=== PATIENT | male | born 2000 | race African-American/Black ===

== ENCOUNTER 2024-05-16 13:03 | Emergency (ER) | payer BC, SELFPAY ==
--- NOTE | ~2024-05-16 | XR_ITS ---
XR finger 4th RT min 2V 05/16/2024 14:07 INDICATION: Right fourth finger pain PROCEDURE: 4 views right fourth finger COMPARISON: No prior studies for comparison. FINDINGS: Fracture, dislocation or subluxation is not identified. The soft tissues appear within norm al limits. No foreign bodies are identified. IMPRESSION: 1: NO ACUTE BONE OR JOINT ABNORMALITY IDENTIFIED. 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
[2024-05-16 13:17] VITALS: BP 121/81; PULSE 82; RESP 18; TEMP 37.2; O2SAT 98
--- NOTE | 2024-05-16 13:54 | ED.GENADULT ---
HPI - General Adult General Chief complaint: Extremity Problem,Nontraumatic Stated complaint: INJURED FINGER Time Seen by Provider: 05/16/24 13:54 Source: patient Mode of arrival: ambulatory Limitations: no limitations History of Present Illness HPI narrative: 23-year-old male presents with complaint of pain and swelling to right ring finger. Patient hurt finger while playing basketball yesterday. Decreased range of motion due to pain. Distal neurovascularly intact. All systems reviewed and negative except as noted above. Related Data Home Medications ?Medication ?Instructions ?Recorded ?Confirmed ?Last Taken ?Type No Home Medications 05/16/24 05/16/24 Unknown History Allergies Allergy/AdvReac Type Severity Reaction Status Date / Time No Known Allergies Allergy Verified 05/16/24 13:21 Review of Systems Review of Systems: CONSTITUTIONAL: Denies fever, chills, or sweats. EYES: Denies visual changes, redness, or discharge. ENT: Denies rhinorrhea, congestion, sore throat, or otalgia. CARDIOVASCULAR: Denies chest pain, palpitations, or edema. RESPIRATORY: Denies cough or dyspnea. GASTROINTESTINAL: Denies abdominal pain, nausea, vomiting, or diarrhea. GENITOURINARY: Denies dysuria or hematuria. SKIN: Denies rash or itching. MUSCULOSKELETAL: Denies back pain, joint pain, or myalgia. Reports pain and swelling to right ring finger. NEUROLOGIC: Denies headache, numbness, or weakness. PSYCHIATRIC: Denies anxiety or depression. All other systems reviewed are negative, except as documented in HPI. PMFSH Comments At time of signature, agree with nursing past medical, surgical, social and family history. There is no relevant family history pertinent to the presenting complaint. Exam Narrative: GENERAL: This is a well-nourished, well-developed patient, in no apparent distress. HEAD: normocephalic, atraumatic. EYES: PERRL. Sclera clear/white. Vision is grossly intact. EARS: External ears normal NOSE: External nose normal NECK: Neck supple, non-tender without lymphadenopathy, masses or thyromegaly. CARDIOVASCULAR: Regular rate and rhythm without murmurs, gallops, or rubs. RESPIRATORY: Clear to auscultation. Breath sounds equal bilaterally. No wheezes, rales, or rhonchi. SKIN: warm, Dry, intact with no suspicious lesions or rash, good texture and turgor. NEURO: awake, alert, and oriented to person, place and time. There were no obvious focal neurologic abnormalities. EXTREMITIES: Tenderness and swelling to PIP of right ring finger. Decreased flexion due to pain and swelling. Distal neurovascularly intact. BACK: Nontender without deformity. No CVA tenderness. Course Course Level of Care: Express Care Visit Vital Signs Vital signs: Vital Signs Temperature 37.2 C 05/16/24 13:17 Pulse Rate 82 05/16/24 13:17 Respiratory Rate 18 05/16/24 13:17 Blood Pressure 121/81 05/16/24 13:17 Pulse Oximetry 98 05/16/24 13:17 Temperature 37.2 C 05/16/24 13:17 Pulse Rate 82 05/16/24 13:17 Respiratory Rate 18 05/16/24 13:17 Blood Pressure 121/81 05/16/24 13:17 Pulse Oximetry 98 05/16/24 13:17 Reviewed Medical Decision Making MDM Narrative Medical decision making narrative: X-ray of right ring finger negative for fracture. Patient placed in finger splint by nurse. Please be advised this is a medical document. It is intended for [id number] communication. It is written in medical language and may contain unfamiliar abbreviations or verbiage. Medical documents are intended to carry relevant information, facts as evident, and the clinical opinion of the practitioner at the time of the encounter. This report may have been done utilizing a voice recognition system. Attempts have been made to correct errors. However, there may be uncorrected grammatical, spelling, and recognition errors present. The file time of this note does not necessarily represent the time of service. Vital Signs Vital Signs: Vital Signs Temperature 37.2 C 05/16/24 13:17 Pulse Rate 82 05/16/24 13:17 Respiratory Rate 18 05/16/24 13:17 Blood Pressure 121/81 05/16/24 13:17 Pulse Oximetry 98 05/16/24 13:17 Temperature 37.2 C 05/16/24 13:17 Pulse Rate 82 05/16/24 13:17 Respiratory Rate 18 05/16/24 13:17 Blood Pressure 121/81 05/16/24 13:17 Pulse Oximetry 98 05/16/24 13:17 Discharge Plan Discharge Clinical Impression: Sprain of right ring finger Qualifiers: Encounter type: initial encounter Sprain of finger site: unspecified site Qualified Code(s): S63.614A - Unspecified sprain of right ring finger, initial encounter Patient Disposition: Home, Self-Care Condition: Stable Instructions: Finger Sprain (ED) Additional Instructions: The x-ray of your right ring finger was negative for fracture. Wear finger splint for comfort. Take ibuprofen or Tylenol every 6-8 hours as needed for pain. Elevate when at rest. Follow-up with your doctor if symptoms are not improving. Patient Language: [place] Island[place] Prescriptions: No Action No Home Medications Follow-up/Referrals: Antione,Urvashi [Other] Time of Disposition: 14:34
== END 2024-05-16 14:40 | disposition home or self-care (01) ==
PROVIDERS: Emergency Provider Nurse Practitioner Family
DX: S63.614A Unspecified sprain of right ring finger, initial encounter (principal); X58.XXXA Exposure to other specified factors, initial encounter; Y93.67 Activity, basketball
CPT/HCPCS: 29130; 73140; 99203; G0463